=== PATIENT | male | born 1950 | race Two or more races ===

== ENCOUNTER 2020-12-06 18:12 | Emergency (ER) | payer OTHER ==
[~2020-12-06] VITALS: Ht 180.3 cm; Wt 65.8 kg
[2020-12-06 19:11] LABS: BILIRUBIN,URINE SMALL (NEGATIVE); COLOR,URINE DARK YELLOW (YELLOW); LEUKOCYTE ESTERASE ,URINE Negative (NEGATIVE); NITRITE, URINE Negative (NEGATIVE); PROTEIN,URINE Negative (NEGATIVE); UGLUCOSE Negative (NEGATIVE); UROBILINOGEN,URINE >=8.0 EU/dL (0.2)
[2020-12-06 19:19] LABS: BASOPHILS % (AUTO) 0.7 % (0.0-2.0); EOSINOPHILS % (AUTO) 3.3 % (0.0-6.0); HEMATOCRIT 37 % (39-51); HEMOGLOBIN 12.2 g/dL (13.5-17.5); LYMPHOCYTES # (AUTO) 1.1 K/uL (0.8-4.8); LYMPHOCYTES % (AUTO) 24.3 % (20.0-44.0); MEAN CORPUSCULAR HGB CONC 33 g/dl (31.0-36.0); MEAN CORPUSCULAR VOLUME 96 fL (80-96); MONOCYTES # (AUTO) 0.5 K/uL (0.1-1.30); MONOCYTES % (AUTO) 10.2 % (2.0-12.0); NEUTROPHILS # (AUTO) 2.9 K/uL (1.8-8.9); NEUTROPHILS % (AUTO) 61.5 % (43.0-81.0); PLATELET COUNT (AUTO) 243 K/uL (150-450); RED BLOOD CELL COUNT(AUTO) 3.85 MIL/uL (4.5-6.0); WHITE BLOOD COUNT (AUTO) 4.7 K/uL (4.3-11.0)
--- NOTE | 2020-12-06 19:30 | NUR ---
BIB [facility] FROM A [employer] [facility], C/O HEARING VOICES TELLIM HIM "WHY YOU KEEP DOING IT TO YOU",DENIES SI/HI, PT TO BED 14, PLACED ON MONITOR, NOT IN ACUTE DISTRESS, NO SOB, PENDING ER PROIVDER EVAL
[2020-12-06 19:32] LABS: CALCIUM, SERUM 7.9 mg/dL (8.5-10.1); CARBON DIOXIDE 25 mmol/L (21-32); CHLORIDE 110 mmol/L (98-107); GLUCOSE 92 mg/dL (74-106); POTASSIUM 3.7 mmol/L (3.5-5.1); SODIUM SERUM 142 mmol/L (136-145); UREA NITROGEN, BLOOD 12 mg/dL (7-18)
[2020-12-06 19:39] LABS: ALANINE AMINOTRANSFERASE 564 U/L (12-78); ALBUMIN 2.8 g/dL (3.4-5.0); ALCOHOL, BLOOD < 3 mg/dL (0-0); ALKALINE PHOSPHATASE 120 U/L (46-116); ASPARTATE AMINOTRANSFERASE 305 U/L (15-37); BILIRUBIN,DIRECT 1.1 mg/dL (0.0-0.2); BILIRUBIN,TOTAL 1.4 mg/dL (0.2-1.0); TOTAL PROTEIN, SERUM 6.4 g/dL (6.4-8.2)
[2020-12-06 19:40] LABS: ACETAMINOPHEN < 2 ug/ml (10-30)
--- NOTE | 2020-12-06 20:00 | NUR ---
PER DR. HALL, PT MEDICALLY CLEARED. PT STATES HE'S A "" AND REQUESTING PLACEMENT TO A [facility]
--- NOTE | 2020-12-06 22:30 | NUR ---
MOVE SHEET WAS SUBMITED, DX OF PSYCHOSIS AND AUDITORY HALLUCINATION
[2020-12-07] MEDS ORDERED: LORAZEPAM 1 MG TABLET PO ONE (03:30)
[2020-12-07] MEDS ORDERED: LORAZEPAM 1 MG TABLET ONE (03:33)
--- NOTE | 2020-12-07 03:35 | NUR ---
PT AMBULATORY IN THE [facility], REPORTED ANXIETY AND INABILITY TO SLEEP. MADE AWARE W/ A NEW ORDER FOR ATIVAN. NOTED AND CARRIED OUT
[2020-12-07 04:05] LABS: ALBUMIN 3.2 g/dL (3.4-5.0); BILIRUBIN,DIRECT 1.4 mg/dL (0.0-0.2); BILIRUBIN,TOTAL 1.9 mg/dL (0.2-1.0); TOTAL PROTEIN, SERUM 7.2 g/dL (6.4-8.2)
--- NOTE | 2020-12-07 15:30 | NUR ---
SS Consult: SS consult requsted for homlessness, drug use and possible SI. Pt. is now medically clear. DAWOOD met with this 70 year old Black male who came to the ER with compaints of SI and AH. Pt. positive for Cocaine. Pt. was Tx. with Ativan. Pt. is A&O x 4 and makes good eye contact. Pt.'s mood is depressed with distressed affect. Pt. stated he is afraid to "go out there". Pt. stated "some dangerous people are after me". Pt. couldn't state who is after him. Pt. states he is afraid and states he may possibly hurt himself "not interntinally" if he leaves today. Pt. is very ambivalent about discharge plan. This SW does not feel that patient is safe to be discharged to self due to symptoms of paranoia and pt. also admits to [facility] of "shadows" and current AH per pt. [facility] clinician to be called if pt. refuses to go voluntary to a psych hospital at a later time. DAWOOD discussed with Rod ROE who is agreeable to plan. Plan: DAWOOD referred pt. to [facility] [[address] [place] [id number] FAX:[phone]] for inpatient psychiatric treatment.
--- NOTE | 2020-12-07 16:00 | NUR ---
patient verbalized "i am not suicidal anymore", md notified and aware.
[2020-12-07 16:18] VITALS: BP 122/61
--- NOTE | 2020-12-07 16:18 | NUR ---
Patient discharged to home in stable condition. Written and verbal after care instructions given. Patient verbalizes understanding of instruction.
== END 2020-12-07 16:18 | disposition home or self-care (01) ==
LOC: ER 18:16
DX: R44.0 Auditory hallucinations (principal); R45.851 Suicidal ideations; F43.10 Post-traumatic stress disorder, unspecified; F41.9 Anxiety disorder, unspecified; Z60.2 Problems related to living alone; Z91.013 Allergy to seafood
CPT/HCPCS: 36415; 80048-TC; 80076-TC; 85025-TC; G0480